=== PATIENT | female | born 1940 | race Caucasian/White ===

== ENCOUNTER 2021-12-04 16:21 | Inpatient (IN) | payer MEDICARE ==
[2021-12-04 17:13] LABS: #Eosinphils 0.1 thou/uL (0.0-0.7); #Lymphocytes 1.1 thou/uL (1.20-3.40); #Monocytes 0.7 thou/uL (0.11-0.59); %Basophils 0.7 % (0.0-1.0); %Eosinophils 1.7 % (0.0-10.0); %Lymphocytes 21.9 % (21.0-51.0); %Neutrophils 61.7 % (42.0-75.0); Hemoglobin 15.2 g/dL (12.0-16.0); Mean Corpuscular HGB CONC 32.2 g/dL (32.0-36.0); Mean Corpuscular Hemoglobin 32.8 pg (27.0-31.0); Mean Platelet Volume 8.1 fL (7.4-10.4); Platelet Count 159 thou/uL (130-400); RBC Distribution Width 12.5 % (11.5-14.5); Red Blood Cell (RBC) Count 4.64 mill/uL (4.20-5.40); White Blood Cell (WBC) Count 4.9 thou/uL (4.8-10.8)
[2021-12-04 17:40] LABS: ALT (SGPT) 23 U/L (8-55); AST (SGOT) 31 U/L (5-34); Albumin 3.5 g/dL (3.4-4.8); Alkaline Phosphatase 64 U/L (40-110); Anion Gap 12 mmol/L (10-20); BUN (Urea Nitrogen) 15 mg/dL (9.8-20.1); Bilirubin, Total 1.1 mg/dL (0.2-1.2); Calc. Creatinine Clearance 0 mL/min (70-130); Calcium 8.9 mg/dL (7.8-10.44); Carbon Dioxide 29 mmol/L (23-31); Chloride 99 mmol/L (98-107); Globulin 2.4 g/dL (2.4-3.5); Glucose 119 mg/dL (83-110); Potassium 3.8 mmol/L (3.5-5.1); Protein, Total 5.9 g/dL (5.8-8.1); Sodium 136 mmol/L (136-145)
[2021-12-04] MEDS ORDERED: Nitroglycerin 2% Ointment 1 INCH/1 GM Packet ONE (18:10)
[2021-12-04] MEDS ORDERED: Furosemide 40 MG/4 ML VIAL ONE (18:52)
[2021-12-04] MEDS ORDERED: Metoprolol Tartrate 5 MG/5 ML VIAL ONE (18:53)
[2021-12-04 19:07] LABS: SARS-CoV-2 NAA Rapid Test Not Detected (NotDetected)
[2021-12-04] MEDS ORDERED: Acetaminophen 325 MG TAB PO PRN (19:59)
[2021-12-04] MEDS ORDERED: Ondansetron PF 4 MG/2 ML Vial IVP PRN (19:59)
[2021-12-04] MEDS ORDERED: Potassium Chloride 20 MEQ TAB PO SCH (20:15)
[2021-12-04 20:36] LABS: Troponin I 0.013 ng/mL (< 0.028)
[2021-12-04 20:43] LABS: Magnesium 1.7 mg/dL (1.6-2.6)
[2021-12-04 21:00] VITALS: BMI 26.4
[2021-12-04] MEDS ORDERED: Apixaban 5 MG TAB PO SCH (21:00)
[2021-12-05 00:01] LABS: Troponin I 0.011 ng/mL (< 0.028)
[2021-12-05] MEDS ORDERED: Metoprolol Tartrate 5 MG/5 ML VIAL IVP SCH (04:29)
[2021-12-05 04:35] LABS: #Eosinphils 0.1 thou/uL (0.0-0.7); #Lymphocytes 1.1 thou/uL (1.20-3.40); #Monocytes 0.6 thou/uL (0.11-0.59); #Neutrophils 3.1 thou/uL (1.40-6.50); %Basophils 0.5 % (0.0-1.0); %Eosinophils 2.5 % (0.0-10.0); %Lymphocytes 21.8 % (21.0-51.0); %Monocytes 11.9 % (0.0-10.0); %Neutrophils 63.3 % (42.0-75.0); Mean Corpuscular HGB CONC 33.6 g/dL (32.0-36.0); Mean Corpuscular Hemoglobin 34.5 pg (27.0-31.0); Mean Platelet Volume 8.5 fL (7.4-10.4); Platelet Count 143 thou/uL (130-400); RBC Distribution Width 12.4 % (11.5-14.5); Red Blood Cell (RBC) Count 4.07 mill/uL (4.20-5.40); White Blood Cell (WBC) Count 4.9 thou/uL (4.8-10.8)
[2021-12-05 04:45] LABS: Anion Gap 12 mmol/L (10-20); BUN (Urea Nitrogen) 17 mg/dL (9.8-20.1); Calc. Creatinine Clearance 58 mL/min (70-130); Calcium 8.5 mg/dL (7.8-10.44); Carbon Dioxide 29 mmol/L (23-31); Chloride 101 mmol/L (98-107); Glucose 110 mg/dL (83-110); Magnesium 1.7 mg/dL (1.6-2.6); Potassium 3.9 mmol/L (3.5-5.1); Sodium 138 mmol/L (136-145)
[2021-12-05] MEDS: Furosemide 40 MG/4 ML VIAL SLOW IVP SCH ×2 (05:28→16:53)
[2021-12-05] MEDS ORDERED: Apixaban 5 MG TAB PO SCH (07:18)
[2021-12-05] MEDS ORDERED: Magnesium 2 GM/50 ML(in water) 2 GM in Premix Bag 1 BAG IVPB SCH (07:30)
[2021-12-05] MEDS ORDERED: Diltiazem 125 MG in Sodium Chloride 0.9% 100 ML IVPB SCH (07:45)
[2021-12-05] MEDS ORDERED: Metoprolol Tartrate 25 MG TAB PO SCH (09:00)
[2021-12-05] MEDS ORDERED: Metoprolol Tartrate 50 MG TAB PO SCH (09:00)
[2021-12-05] MEDS: Digoxin 0.5 MG/2 ML AMP SLOW IVP SCH ×3 (10:31→20:47)
[2021-12-05] MEDS: Potassium Chloride 20 MEQ TAB PO SCH (10:47)
[2021-12-05] MEDS: Apixaban 2.5 MG TAB PO SCH ×2 (10:48→20:47)
[2021-12-05] MEDS: Metoprolol Tartrate 25 MG TAB PO SCH (20:47)
[2021-12-06] MEDS: Digoxin 0.5 MG/2 ML AMP SLOW IVP SCH (03:20)
[2021-12-06 04:19] LABS: #Eosinphils 0.1 thou/uL (0.0-0.7); #Lymphocytes 1.2 thou/uL (1.20-3.40); #Monocytes 0.4 thou/uL (0.11-0.59); #Neutrophils 1.9 thou/uL (1.40-6.50); %Basophils 0.1 % (0.0-1.0); %Eosinophils 3.5 % (0.0-10.0); %Lymphocytes 33.5 % (21.0-51.0); %Monocytes 11.9 % (0.0-10.0); %Neutrophils 50.9 % (42.0-75.0); Mean Corpuscular HGB CONC 33.3 g/dL (32.0-36.0); Mean Platelet Volume 8.5 fL (7.4-10.4); Platelet Count 136 thou/uL (130-400); RBC Distribution Width 12.3 % (11.5-14.5); Red Blood Cell (RBC) Count 4.29 mill/uL (4.20-5.40); White Blood Cell (WBC) Count 3.7 thou/uL (4.8-10.8)
[2021-12-06 04:39] LABS: Anion Gap 13 mmol/L (10-20); BUN (Urea Nitrogen) 15 mg/dL (9.8-20.1); Calc. Creatinine Clearance 54 mL/min (70-130); Calcium 8.1 mg/dL (7.8-10.44); Carbon Dioxide 29 mmol/L (23-31); Chloride 100 mmol/L (98-107); Glucose 107 mg/dL (83-110); Potassium 3.7 mmol/L (3.5-5.1); Sodium 138 mmol/L (136-145)
[2021-12-06] MEDS ORDERED: Metolazone 2.5 MG TAB PO SCH ×2 (08:30)
[2021-12-06] MEDS: Potassium Chloride 20 MEQ TAB PO SCH (09:53)
[2021-12-06] MEDS: Metoprolol Tartrate 25 MG TAB PO SCH (09:59)
[2021-12-06] MEDS: Apixaban 2.5 MG TAB PO SCH (09:59)
[2021-12-06] MEDS: Furosemide 40 MG/4 ML VIAL SLOW IVP SCH ×2 (10:00→15:14)
[2021-12-06 16:07] VITALS: BP 108/76; TEMP 97.2
[2021-12-06] MEDS ORDERED: Apixaban 5 MG TAB PO SCH (21:00)
== END 2021-12-06 15:50 | disposition home or self-care (01) | DRG 291 ==
LOC: ERS 16:21 → 2NO 19:28
PROVIDERS: ADMIT Internal Medicine; ATTEND Internal Medicine
DX: I11.0 Hypertensive heart disease with heart failure (principal); I50.33 Acute on chronic diastolic (congestive) heart failure; Z20.822 Contact with and (suspected) exposure to COVID-19; E03.9 Hypothyroidism, unspecified; F41.9 Anxiety disorder, unspecified; I48.0 Paroxysmal atrial fibrillation; I87.2 Venous insufficiency (chronic) (peripheral); I08.3 Combined rheumatic disorders of mitral, aortic and tricuspid valves; Z91.09 Other allergy status, other than to drugs and biological substances; Z85.21 Personal history of malignant neoplasm of larynx; Z90.89 Acquired absence of other organs; Z90.49 Acquired absence of other specified parts of digestive tract; Z92.21 Personal history of antineoplastic chemotherapy; Z79.899 Other long term (current) drug therapy; Z79.01 Long term (current) use of anticoagulants; Z82.3 Family history of stroke; Z82.49 Family history of ischemic heart disease and other diseases of the circulatory system; Z87.891 Personal history of nicotine dependence
CPT/HCPCS: 36415; 71045; 80048; 80053; 83735; 83880; 84443; 84484; 85025; 93005; 93306; 96374; 96375; J1160; J1940; J3475; U0002

== ENCOUNTER 2022-02-03 08:55 | Inpatient (IN) | payer MEDICARE ==
[2022-02-03] MEDS ORDERED: Acetaminophen 325 MG TAB PO PRN (18:41)
[2022-02-03] MEDS ORDERED: Bisacodyl 5 MG TAB PO PRN (18:41)
[2022-02-03] MEDS ORDERED: Senokot S 8.6-50 MG TAB PO PRN (18:41)
[2022-02-03 18:57] LABS: Anion Gap 17 mmol/L (10-20); BUN (Urea Nitrogen) 19 mg/dL (9.8-20.1); Calc. Creatinine Clearance 0 mL/min (70-130); Calcium 9.1 mg/dL (7.8-10.44); Carbon Dioxide 32 mmol/L (23-31); Chloride 95 mmol/L (98-107); Glucose 100 mg/dL (83-110); Magnesium 2.5 mg/dL (1.6-2.6); Potassium 3.6 mmol/L (3.5-5.1); Sodium 140 mmol/L (136-145)
[2022-02-03] MEDS ORDERED: Potassium Chloride 20 MEQ TAB PO SCH (19:45)
[2022-02-03 19:50] VITALS: BMI 24.1
[2022-02-03] MEDS ORDERED: Dofetilide 0.125 MG CAP PO SCH (21:00)
[2022-02-03] MEDS: Metoprolol Tartrate 100 MG TAB PO SCH (21:07)
[2022-02-03] MEDS: Famotidine 20 MG TAB PO SCH (21:07)
[2022-02-03] MEDS: Apixaban 5 MG TAB PO SCH (21:07)
[2022-02-04 05:24] LABS: #Eosinphils 0.1 thou/uL (0.0-0.7); #Lymphocytes 1.4 thou/uL (1.20-3.40); #Monocytes 0.6 thou/uL (0.11-0.59); #Neutrophils 2.3 thou/uL (1.40-6.50); %Basophils 0.7 % (0.0-1.0); %Eosinophils 2.2 % (0.0-10.0); %Lymphocytes 31.2 % (21.0-51.0); %Monocytes 13.3 % (0.0-10.0); %Neutrophils 52.6 % (42.0-75.0); Hemoglobin 14.2 g/dL (12.0-16.0); Mean Corpuscular HGB CONC 33.5 g/dL (32.0-36.0); Mean Corpuscular Hemoglobin 35.1 pg (27.0-31.0); Platelet Count 122 thou/uL (130-400); RBC Distribution Width 13.2 % (11.5-14.5); Red Blood Cell (RBC) Count 4.04 mill/uL (4.20-5.40); White Blood Cell (WBC) Count 4.4 thou/uL (4.8-10.8)
[2022-02-04 05:35] LABS: Anion Gap 14 mmol/L (10-20); BUN (Urea Nitrogen) 19 mg/dL (9.8-20.1); Calc. Creatinine Clearance 49 mL/min (70-130); Calcium 8.5 mg/dL (7.8-10.44); Carbon Dioxide 33 mmol/L (23-31); Chloride 96 mmol/L (98-107); Glucose 103 mg/dL (83-110); Magnesium 2.4 mg/dL (1.6-2.6); Potassium 3.6 mmol/L (3.5-5.1); Sodium 139 mmol/L (136-145)
[2022-02-04] MEDS ORDERED: Enoxaparin Sodium 40 MG/0.4 ML SYRINGE SC SCH (09:00)
[2022-02-04] MEDS ORDERED: Dofetilide 0.25 MG CAP PO SCH (09:00)
[2022-02-04] MEDS ORDERED: Furosemide 20 MG TAB PO SCH ×2 (09:00)
[2022-02-04] MEDS ORDERED: Metolazone 2.5 MG TAB PO SCH ×2 (09:00)
[2022-02-04] MEDS: Apixaban 5 MG TAB PO SCH ×2 (09:25→21:17)
[2022-02-04] MEDS: Dofetilide 0.125 MG CAP PO SCH ×2 (09:26→21:17)
[2022-02-04] MEDS: Metoprolol Tartrate 100 MG TAB PO SCH ×2 (09:26→21:17)
[2022-02-04] MEDS: Potassium Chloride 20 MEQ TAB PO SCH (09:26)
[2022-02-04] MEDS: Famotidine 20 MG TAB PO SCH (09:26)
[2022-02-04 12:21] LABS: SARS-CoV-2 PCR by NAA Not Detected (NotDetected)
[2022-02-04] MEDS ORDERED: Potassium Chloride 20 MEQ TAB PO SCH (13:45)
[2022-02-05 05:02] LABS: #Eosinphils 0.1 thou/uL (0.0-0.7); #Lymphocytes 1.3 thou/uL (1.20-3.40); #Monocytes 0.5 thou/uL (0.11-0.59); #Neutrophils 2.1 thou/uL (1.40-6.50); %Basophils 0.8 % (0.0-1.0); %Eosinophils 2.7 % (0.0-10.0); %Lymphocytes 32.4 % (21.0-51.0); %Monocytes 12.3 % (0.0-10.0); %Neutrophils 51.7 % (42.0-75.0); Hemoglobin 15.3 g/dL (12.0-16.0); Mean Corpuscular HGB CONC 33.3 g/dL (32.0-36.0); Mean Corpuscular Hemoglobin 35.1 pg (27.0-31.0); Mean Platelet Volume 9.1 fL (7.4-10.4); Platelet Count 118 thou/uL (130-400); RBC Distribution Width 13.2 % (11.5-14.5); Red Blood Cell (RBC) Count 4.35 mill/uL (4.20-5.40)
[2022-02-05 05:20] LABS: Anion Gap 13 mmol/L (10-20); BUN (Urea Nitrogen) 21 mg/dL (9.8-20.1); Calc. Creatinine Clearance 41 mL/min (70-130); Calcium 8.6 mg/dL (7.8-10.44); Carbon Dioxide 31 mmol/L (23-31); Chloride 99 mmol/L (98-107); Glucose 112 mg/dL (83-110); Magnesium 2.1 mg/dL (1.6-2.6); Potassium 4.2 mmol/L (3.5-5.1); Sodium 139 mmol/L (136-145)
[2022-02-05] MEDS: Potassium Chloride 20 MEQ TAB PO SCH (08:56)
[2022-02-05] MEDS: Apixaban 5 MG TAB PO SCH (08:56)
[2022-02-05] MEDS: Metoprolol Tartrate 100 MG TAB PO SCH (08:56)
[2022-02-05] MEDS: Dofetilide 0.125 MG CAP PO SCH (08:57)
[2022-02-05] MEDS ORDERED: Potassium Chloride 20 MEQ TAB PO SCH (09:00)
[2022-02-05] MEDS ORDERED: Famotidine 20 MG TAB PO SCH (09:00)
[2022-02-05] MEDS ORDERED: Magnesium 2 GM/50 ML(in water) 2 GM in Premix Bag 1 BAG IVPB SCH (09:00)
[2022-02-05 15:48] VITALS: BP 142/67; TEMP 98.4
== END 2022-02-05 17:45 | disposition home or self-care (01) | DRG 309 ==
LOC: 2NO 17:13
PROVIDERS: ADMIT Hospitalist; ATTEND Internal Medicine Cardiovascular Disease
DX: I48.91 Unspecified atrial fibrillation (principal); I50.32 Chronic diastolic (congestive) heart failure; Z20.822 Contact with and (suspected) exposure to COVID-19; E03.9 Hypothyroidism, unspecified; Z79.01 Long term (current) use of anticoagulants; Z79.899 Other long term (current) drug therapy; Z91.048 Other nonmedicinal substance allergy status; Z87.891 Personal history of nicotine dependence
CPT/HCPCS: 36415; 80048; 83735; 85025; 93005; 93010; J3475; J8499; U0003; U0005

== ENCOUNTER 2024-09-16 14:41 | Emergency (ER) | payer MEDICARE ==
[2024-09-16 15:33] LABS: #Basophils 0.03 10x3/uL (0.0-0.2); %Basophils 0.4 % (0.0-1.0); %Eosinophils 0.8 % (0.0-10.0); %Lymphocytes 13.6 % (21.0-51.0); %Monocytes 10.8 % (0.0-10.0); %Neutrophils 73.9 % (42.0-75.0); Hematocrit 46.1 % (36.0-47.0); Mean Corpuscular HGB CONC 32.5 g/dL (32.0-36.0); Mean Corpuscular Hemoglobin 32.5 pg (27.0-31.0); Mean Corpuscular Volume 99.8 fL (78.0-98.0); Mean Platelet Volume 11.9 fL (7.4-10.4); Platelet Count 165 10x3/uL (130-400); RBC Distribution Width 14.7 % (11.5-14.5); Red Blood Cell (RBC) Count 4.62 mill/uL (4.20-5.40)
[2024-09-16 15:56] LABS: INR-International Normal Ratio 1.5; PTT 38.6 sec (22.9-36.1); Prothrombin Time 17.8 sec (12.0-14.7)
[2024-09-16 16:01] LABS: Troponin I Less than 0.010 ng/mL (< 0.028)
[2024-09-16] MEDS ORDERED: Furosemide 40 MG (4 mL) VIAL ONE (16:43)
[2024-09-16] MEDS ORDERED: Metoprolol Tartrate 5 MG (5 mL) VIAL ONE (16:43)
[2024-09-16 17:40] LABS: ALT (SGPT) 19 U/L (8-55); AST (SGOT) 26 U/L (5-34); Albumin 3.1 g/dL (3.4-4.8); Alkaline Phosphatase 131 U/L (40-110); Anion Gap 15 mmol/L (10-20); BUN (Urea Nitrogen) 15 mg/dL (9.8-20.1); Calc. Creatinine Clearance 0 mL/min (70-130); Calcium 8.8 mg/dL (7.8-10.44); Carbon Dioxide 25 mmol/L (23-31); Chloride 101 mmol/L (98-107); Estimated GFR 77; Globulin 3.8 g/dL (2.4-3.5); Glucose 162 mg/dL (83-110); Potassium 3.5 mmol/L (3.5-5.1); Protein, Total 6.9 g/dL (5.8-8.1); Sodium 137 mmol/L (136-145)
== END 2024-09-16 19:02 | disposition home or self-care (01) ==
LOC: ERS 14:41
DX: S80.11XA Contusion of right lower leg, initial encounter (principal); X58.XXXA Exposure to other specified factors, initial encounter
CPT/HCPCS: 71045; 80053; 83605; 83880; 84484; 85025; 85610; 85730; 93005; 93971; 96374; 96375; 99284; J1940

== ENCOUNTER 2024-11-02 22:04 | Inpatient (IN) | payer MEDICARE ==
[2024-11-03 02:32] VITALS: BMI 21.2
[2024-11-03] MEDS ORDERED: Ondansetron ODT 4 MG TAB PO PRN (02:37)
[2024-11-03] MEDS ORDERED: Acetaminophen 650 MG Suppository PR PRN (02:37)
[2024-11-03] MEDS ORDERED: Calcium Carbonate 500 MG ChewTAB PO PRN (02:37)
[2024-11-03] MEDS ORDERED: Acetaminophen 325 MG TAB PO PRN (02:37)
[2024-11-03] MEDS ORDERED: Ondansetron PF 4 MG/2 ML Vial IVP PRN (02:37)
[2024-11-03 05:00] LABS: #Basophils Less than 0.03 10x3/uL (0.0-0.2); %Basophils 0.4 % (0.0-1.0); %Eosinophils 2.1 % (0.0-10.0); %Lymphocytes 19.3 % (21.0-51.0); %Monocytes 15.4 % (0.0-10.0); %Neutrophils 62.6 % (42.0-75.0); Hematocrit 41.2 % (36.0-47.0); Hemoglobin 13.7 g/dL (12.0-16.0); Mean Corpuscular HGB CONC 33.3 g/dL (32.0-36.0); Mean Corpuscular Hemoglobin 33.4 pg (27.0-31.0); Mean Corpuscular Volume 100.5 fL (78.0-98.0); Mean Platelet Volume 11.4 fL (7.4-10.4); Platelet Count 148 10x3/uL (130-400); RBC Distribution Width 14.4 % (11.5-14.5)
[2024-11-03 05:40] LABS: ALT (SGPT) 13 U/L (Less than 34); AST (SGOT) 22 U/L (11-34); Albumin 2.7 g/dL (3.1-4.5); Alkaline Phosphatase 99 U/L (40-110); Anion Gap 14 mmol/L (10-20); BUN (Urea Nitrogen) 19 mg/dL (9.8-20.1); Bilirubin, Total 1.2 mg/dL (0.3-1.2); Calc. Creatinine Clearance 49 mL/min (70-130); Calcium 8.5 mg/dL (7.8-10.44); Carbon Dioxide 27 mmol/L (23-31); Chloride 104 mmol/L (98-107); Estimated GFR 77; Globulin 3.3 g/dL (2.4-3.5); Glucose 125 mg/dL (83-110); Potassium 3.7 mmol/L (3.5-5.1); Sodium 141 mmol/L (136-145)
[2024-11-03] MEDS: Albuterol 2.5 MG (3 mL) NEB NEB PRN (07:49)
[2024-11-03] MEDS: Magnesium Oxide 400 MG TAB PO SCH (08:32)
[2024-11-03] MEDS: Metoprolol Tartrate 100 MG TAB PO SCH (08:32)
[2024-11-03] MEDS: Apixaban 2.5 MG TAB PO SCH (08:32)
[2024-11-03] MEDS: Famotidine 20 MG TAB PO SCH (08:32)
[2024-11-03] MEDS: Dofetilide 0.125 MG CAP PO SCH (08:32)
[2024-11-03] MEDS: Potassium Chloride 20 MEQ TAB PO SCH (08:32)
[2024-11-03] MEDS: ALPRAZolam 0.5 MG TAB PO PRN (08:33)
[2024-11-03] MEDS: Famotidine/PF 20 mg/2ml Vial SLOW IVP SCH (08:33)
[2024-11-03] MEDS: Furosemide 40 MG (4 mL) VIAL SLOW IVP SCH ×2 (08:54→14:36)
[2024-11-03] MEDS ORDERED: MAGNESIUM GLYCINATE 100 MG PO SCH (09:00)
[2024-11-03] MEDS ORDERED: Famotidine 20 MG TAB PO SCH (09:00)
[2024-11-03] MEDS ORDERED: Famotidine/PF 20 mg/2ml Vial SLOW IVP SCH (09:00)
[2024-11-03] MEDS ORDERED: Non-Formulary Item 1 EACH (Levothyroxine Sodium [Levothyroxine Sodium] 100 MCG Capsule) PO SCH (09:00)
[2024-11-03] MEDS ORDERED: Apixaban 5 MG TAB PO SCH (09:00)
[2024-11-03] MEDS: Guaifenesin DM 100-10/5 ML UDCUP PO PRN (11:25)
[2024-11-03] MEDS: ALPRAZolam 0.5 MG TAB PO SCH (20:06)
[2024-11-03 22:45] LABS: Actual Bicarbonate (HCO3a) 24.1 mEq/L (22-28); Base Excess (BEa) -4.1 mEq/L (-2.0 to +3.0); CO2 Tension 56.2 mmHg (35.0-45.0); Calcium, Ionized (arterial) 1.13 mmol/L (1.12-1.30); Hematocrit-ABG 47 % (36.0-47.0); Hemoglobin (Hb) 16.1 g/dL (12.0-16.0); O2 Tension (PaO2), arterial 249.5 mmHg (> 60.0); Potassium - ABG Lab 4.51 mmol/L (3.70-5.30)
[2024-11-03 23:31] LABS: Anion Gap 16 mmol/L (10-20); BUN (Urea Nitrogen) 23 mg/dL (9.8-20.1); Calc. Creatinine Clearance 38 mL/min (70-130); Calcium 8.9 mg/dL (7.8-10.44); Carbon Dioxide 25 mmol/L (23-31); Chloride 103 mmol/L (98-107); Estimated GFR 57; Glucose 145 mg/dL (83-110); Potassium 4.4 mmol/L (3.5-5.1); Sodium 140 mmol/L (136-145)
[2024-11-03 23:32] LABS: Lactic Acid 3.08 mmol/L (0.50-2.20)
[2024-11-04] MEDS: Acetylcysteine (MUCOMYST) 200 MG/ML (10 ML VIAL) NEB SCH (00:40)
[2024-11-04] MEDS: Levothyroxine Sodium 100 MCG TAB PO SCH (05:27)
[2024-11-04 06:25] LABS: #Basophils Less than 0.03 10x3/uL (0.0-0.2); #Eosinophils Less than 0.03 10x3/uL (0.0-0.7); %Basophils 0.3 % (0.0-1.0); %Eosinophils 0.1 % (0.0-10.0); %Lymphocytes 14.8 % (21.0-51.0); %Monocytes 13.1 % (0.0-10.0); %Neutrophils 71.3 % (42.0-75.0); Hematocrit 44.4 % (36.0-47.0); Hemoglobin 14.4 g/dL (12.0-16.0); Mean Corpuscular HGB CONC 32.4 g/dL (32.0-36.0); Mean Corpuscular Hemoglobin 33.3 pg (27.0-31.0); Mean Corpuscular Volume 102.8 fL (78.0-98.0); Mean Platelet Volume 11.7 fL (7.4-10.4); Platelet Count 137 10x3/uL (130-400); RBC Distribution Width 14.3 % (11.5-14.5); Red Blood Cell (RBC) Count 4.32 mill/uL (4.20-5.40)
[2024-11-04 06:46] LABS: Anion Gap 16 mmol/L (10-20); BUN (Urea Nitrogen) 22 mg/dL (9.8-20.1); Calc. Creatinine Clearance 43 mL/min (70-130); Calcium 8.4 mg/dL (7.8-10.44); Carbon Dioxide 27 mmol/L (23-31); Chloride 103 mmol/L (98-107); Estimated GFR 66; Glucose 132 mg/dL (83-110); Potassium 4.2 mmol/L (3.5-5.1); Sodium 142 mmol/L (136-145)
[2024-11-04] MEDS: Metolazone 2.5 MG TAB PO SCH (08:10)
[2024-11-05] MEDS: Furosemide 20 MG (2 mL) VIAL SLOW IVP SCH (14:35)
[2024-11-06 05:17] LABS: #Basophils 0.04 10x3/uL (0.0-0.2); %Basophils 0.8 % (0.0-1.0); %Eosinophils 4.7 % (0.0-10.0); %Lymphocytes 30.7 % (21.0-51.0); %Monocytes 13.7 % (0.0-10.0); %Neutrophils 49.7 % (42.0-75.0); Hematocrit 41.7 % (36.0-47.0); Hemoglobin 13.7 g/dL (12.0-16.0); Mean Corpuscular HGB CONC 32.9 g/dL (32.0-36.0); Mean Corpuscular Hemoglobin 33.1 pg (27.0-31.0); Mean Corpuscular Volume 100.7 fL (78.0-98.0); Mean Platelet Volume 11.1 fL (7.4-10.4); Platelet Count 147 10x3/uL (130-400); RBC Distribution Width 14.2 % (11.5-14.5); Red Blood Cell (RBC) Count 4.14 mill/uL (4.20-5.40)
[2024-11-06 07:18] LABS: Anion Gap 10 mmol/L (10-20); BUN (Urea Nitrogen) 22 mg/dL (9.8-20.1); Calc. Creatinine Clearance 48 mL/min (70-130); Calcium 8.2 mg/dL (7.8-10.44); Carbon Dioxide 33 mmol/L (23-31); Chloride 97 mmol/L (98-107); Estimated GFR 78; Glucose 95 mg/dL (83-110); Potassium 3.5 mmol/L (3.5-5.1); Sodium 136 mmol/L (136-145)
[2024-11-07] MEDS ORDERED: Lidocaine 1% PF 5 ML VIAL ONE (10:06)
[2024-11-07] MEDS ORDERED: PROPOFOL 200 MG/20 ML VIAL ONE (10:06)
[2024-11-07 11:51] VITALS: BP 131/60; TEMP 98.1
== END 2024-11-07 17:11 | disposition home or self-care (01) | DRG 291 ==
LOC: INTOOBSV 22:04 → 2NO 22:04 → OBSVTOIN 11-03 08:34 → IMCU/EMU 11-03 23:15 → 2NO 11-04 16:06
PROVIDERS: ADMIT Student in an Organized Health Care Education/Training Program; ATTEND Hospitalist
PROC: 5A2204Z Restoration of Cardiac Rhythm, Single (ICD-10-PCS; principal; 2024-11-07)
DX: I11.0 Hypertensive heart disease with heart failure (principal); I50.33 Acute on chronic diastolic (congestive) heart failure; J96.02 Acute respiratory failure with hypercapnia; J96.01 Acute respiratory failure with hypoxia; I48.19 Other persistent atrial fibrillation; G93.40 Encephalopathy, unspecified; E87.29 Other acidosis; J95.03 Malfunction of tracheostomy stoma; I48.0 Paroxysmal atrial fibrillation; I07.1 Rheumatic tricuspid insufficiency; Z79.01 Long term (current) use of anticoagulants; Z90.49 Acquired absence of other specified parts of digestive tract; Z98.51 Tubal ligation status; Z87.891 Personal history of nicotine dependence
CPT/HCPCS: 36415; 36416; 71045; 80048; 80053; 82805; 83605; 83880; 85025; 92960; 93005; 93010; 93306; 94640; G0378; J1940; J2704; J7608; J7611; J8499

== ENCOUNTER 2024-11-09 19:43 | Inpatient (IN) | payer MEDICARE ==
[2024-11-09 20:37] LABS: #Basophils Less than 0.03 10x3/uL (0.0-0.2); %Basophils 0.3 % (0.0-1.0); %Eosinophils 1.1 % (0.0-10.0); %Lymphocytes 10.2 % (21.0-51.0); %Neutrophils 76.6 % (42.0-75.0); Hemoglobin 16.2 g/dL (12.0-16.0); Mean Corpuscular HGB CONC 33.1 g/dL (32.0-36.0); Mean Corpuscular Hemoglobin 33.1 pg (27.0-31.0); Mean Platelet Volume 11.4 fL (7.4-10.4); Platelet Count 143 10x3/uL (130-400); RBC Distribution Width 13.8 % (11.5-14.5)
[2024-11-09 20:40] LABS: Actual Bicarbonate (HCO3v) 28.5 mEq/L (22-28); Base Excess 3.2 mEq/L (-2.0 to +3.0); Calcium, Ionized (venous) 1.09 mmol/L (1.16-1.32); Chloride (VBG) 97 mmol/L (98-106); Hematocrit-VBG 51 % (36.0-47.0); Hemoglobin (Hb) 17.2 g/dL (11.7-16.1); Potassium (VBG) 3.71 mmol/L (3.70-5.30); Sodium 138 mmol/L (133-146); pH (venous) 7.414 (7.32-7.43)
[2024-11-09 20:53] LABS: ALT (SGPT) 25 U/L (Less than 34); AST (SGOT) 44 U/L (11-34); Alkaline Phosphatase 116 U/L (40-110); Anion Gap 17 mmol/L (10-20); BUN (Urea Nitrogen) 22 mg/dL (9.8-20.1); Calc. Creatinine Clearance 0 mL/min (70-130); Carbon Dioxide 27 mmol/L (23-31); Chloride 98 mmol/L (98-107); Estimated GFR 61; Glucose 160 mg/dL (83-110); Potassium 3.7 mmol/L (3.5-5.1); Sodium 138 mmol/L (136-145)
[2024-11-09 20:57] LABS: Troponin I 0.078 ng/mL (< 0.028)
[2024-11-09] MEDS ORDERED: Aspirin Chewable 81 MG TAB ONE (22:10)
[2024-11-09] MEDS ORDERED: Furosemide 40 MG (4 mL) VIAL ONE (22:10)
[2024-11-09] MEDS ORDERED: Ondansetron PF 4 MG/2 ML Vial IVP PRN (23:08)
[2024-11-09] MEDS ORDERED: Acetaminophen 325 MG TAB PO PRN (23:08)
[2024-11-09] MEDS ORDERED: Ipratropium/Albuterol 3 ML NEB EZPAP PRN (23:37)
[2024-11-10] MEDS: guaiFENesin/DM ER PO SCH ×2 (00:21→10:42)
[2024-11-10 01:52] LABS: Troponin I 0.146 ng/mL (< 0.028)
[2024-11-10 04:40] LABS: #Basophils Less than 0.03 10x3/uL (0.0-0.2); %Basophils 0.3 % (0.0-1.0); %Lymphocytes 22.4 % (21.0-51.0); %Monocytes 13.5 % (0.0-10.0); Hematocrit 44.1 % (36.0-47.0); Hemoglobin 14.7 g/dL (12.0-16.0); Mean Corpuscular HGB CONC 33.3 g/dL (32.0-36.0); Mean Corpuscular Hemoglobin 33.2 pg (27.0-31.0); Mean Corpuscular Volume 99.5 fL (78.0-98.0); Mean Platelet Volume 11.6 fL (7.4-10.4); Platelet Count 141 10x3/uL (130-400); RBC Distribution Width 13.6 % (11.5-14.5); Red Blood Cell (RBC) Count 4.43 mill/uL (4.20-5.40)
[2024-11-10 05:32] LABS: Anion Gap 17 mmol/L (10-20); BUN (Urea Nitrogen) 20 mg/dL (9.8-20.1); Calc. Creatinine Clearance 46 mL/min (70-130); Calcium 8.5 mg/dL (7.8-10.44); Carbon Dioxide 27 mmol/L (23-31); Chloride 99 mmol/L (98-107); Estimated GFR 75; Glucose 114 mg/dL (83-110); Magnesium 1.6 mg/dL (1.6-2.6); Potassium 3.3 mmol/L (3.5-5.1); Sodium 140 mmol/L (136-145)
[2024-11-10 06:17] LABS: Troponin I 0.104 ng/mL (< 0.028)
[2024-11-10] MEDS ORDERED: Magnesium 2 GM/50 ML BAG (IN WATER) ONE ×2 (06:26→09:41)
[2024-11-10] MEDS ORDERED: Potassium Chloride 20 MEQ TAB ONE ×2 (06:26→09:43)
[2024-11-10] MEDS ORDERED: Levothyroxine Sodium 100 MCG TAB ONE (06:26)
[2024-11-10] MEDS: Potassium Chloride 20 MEQ TAB PO SCH (06:37)
[2024-11-10] MEDS: Magnesium 2 GM/50 ML(in water) 2 GM in Premix 1 BAG IVPB SCH ×2 (06:37→10:42)
[2024-11-10] MEDS: Levothyroxine Sodium 100 MCG TAB PO SCH (06:37)
[2024-11-10] MEDS ORDERED: Electrolyte Replacement Protocol 1 EACH FS PRN (07:55)
[2024-11-10] MEDS ORDERED: MAGNESIUM GLYCINATE 100 MG PO SCH (09:00)
[2024-11-10] MEDS ORDERED: guaiFENesin ER 600 MG TAB ONE (09:43)
[2024-11-10] MEDS ORDERED: Metoprolol Tartrate 50 MG TAB ONE (09:43)
[2024-11-10] MEDS ORDERED: Furosemide 20 MG (2 mL) VIAL ONE (09:43)
[2024-11-10] MEDS ORDERED: Apixaban 5 MG TAB ONE (09:43)
[2024-11-10] MEDS ORDERED: Amiodarone 450 MG, Admixture Fee 1 EACH in Dextrose 5% in Water 250 ML IVPB SCH (09:45)
[2024-11-10] MEDS: Apixaban 2.5 MG TAB PO SCH (10:42)
[2024-11-10] MEDS: Furosemide 20 MG (2 mL) VIAL SLOW IVP SCH (10:42)
[2024-11-10] MEDS: Metoprolol Tartrate 100 MG TAB PO SCH (10:43)
[2024-11-10] MEDS: Potassium Chloride 10 MEQ TAB PO SCH (10:43)
[2024-11-10] MEDS: Dofetilide 0.125 MG CAP PO SCH (10:43)
[2024-11-10] MEDS: Amiodarone 150 MG, Admixture Fee 1 EACH in Dextrose 5% in Water 100 ML IVPB SCH (11:32)
[2024-11-10 18:03] LABS: Potassium 4.1 mmol/L (3.5-5.1)
[2024-11-10] MEDS: Cyanocobalamin (Vitamin B-12) 1,000 MCG TAB PO SCH (21:04)
[2024-11-10] MEDS: Folic Acid 1 MG TAB PO SCH (21:04)
[2024-11-10] MEDS: Cholecalciferol 1,000 UNITS (25 MCG) TAB PO SCH (21:04)
[2024-11-11 05:03] LABS: #Basophils Less than 0.03 10x3/uL (0.0-0.2); %Basophils 0.4 % (0.0-1.0); %Eosinophils 2.8 % (0.0-10.0); %Monocytes 13.2 % (0.0-10.0); %Neutrophils 61.1 % (42.0-75.0); Hematocrit 42.2 % (36.0-47.0); Mean Corpuscular HGB CONC 33.2 g/dL (32.0-36.0); Mean Corpuscular Volume 99.5 fL (78.0-98.0); Mean Platelet Volume 11.3 fL (7.4-10.4); Platelet Count 135 10x3/uL (130-400); RBC Distribution Width 13.5 % (11.5-14.5); Red Blood Cell (RBC) Count 4.24 mill/uL (4.20-5.40)
[2024-11-11 05:30] LABS: ALT (SGPT) 18 U/L (Less than 34); AST (SGOT) 25 U/L (11-34); Albumin 2.5 g/dL (3.1-4.5); Alkaline Phosphatase 89 U/L (40-110); Anion Gap 10 mmol/L (10-20); BUN (Urea Nitrogen) 20 mg/dL (9.8-20.1); Bilirubin, Total 1.4 mg/dL (0.3-1.2); Calc. Creatinine Clearance 47 mL/min (70-130); Calcium 8.1 mg/dL (7.8-10.44); Carbon Dioxide 30 mmol/L (23-31); Chloride 99 mmol/L (98-107); Estimated GFR 76; Globulin 3.3 g/dL (2.4-3.5); Glucose 114 mg/dL (83-110); Magnesium 2.1 mg/dL (1.6-2.6); Potassium 3.4 mmol/L (3.5-5.1); Protein, Total 5.8 g/dL (5.8-8.1); Sodium 136 mmol/L (136-145)
[2024-11-11] MEDS ORDERED: dilTIAZem 30 MG TAB PO SCH (06:00)
[2024-11-11] MEDS ORDERED: Electrolyte Replacement Protocol 1 EACH FS PRN (08:12)
[2024-11-11] MEDS ORDERED: Electrolyte Replacement Protocol FS PRN (08:30)
[2024-11-11] MEDS ORDERED: Metolazone 2.5 MG TAB PO SCH (09:00)
[2024-11-11] MEDS: Potassium Chloride 20 MEQ TAB PO SCH (09:28)
[2024-11-11] MEDS ORDERED: Polyethylene Glycol 3350 17 GM Packet PO PRN (11:12)
[2024-11-11] MEDS: Potassium Chloride 10 MEQ TAB PO SCH (17:06)
[2024-11-11] MEDS: Ipratropium/Albuterol 3 ML NEB IPPB SCH (19:32)
[2024-11-11] MEDS: Docusate 100 MG CAP PO SCH (20:44)
[2024-11-11] MEDS: ALPRAZolam 0.5 MG TAB PO PRN (22:32)
[2024-11-12 05:57] LABS: #Basophils 0.03 10x3/uL (0.0-0.2); %Basophils 0.5 % (0.0-1.0); %Eosinophils 2.5 % (0.0-10.0); %Lymphocytes 27.4 % (21.0-51.0); %Monocytes 13.1 % (0.0-10.0); %Neutrophils 55.8 % (42.0-75.0); Hematocrit 43.2 % (36.0-47.0); Hemoglobin 14.2 g/dL (12.0-16.0); Mean Corpuscular HGB CONC 32.9 g/dL (32.0-36.0); Mean Corpuscular Hemoglobin 33.1 pg (27.0-31.0); Mean Corpuscular Volume 100.7 fL (78.0-98.0); Platelet Count 143 10x3/uL (130-400); RBC Distribution Width 13.5 % (11.5-14.5); Red Blood Cell (RBC) Count 4.29 mill/uL (4.20-5.40)
[2024-11-12 06:21] LABS: ALT (SGPT) 16 U/L (Less than 34); AST (SGOT) 24 U/L (11-34); Albumin 2.6 g/dL (3.1-4.5); Alkaline Phosphatase 85 U/L (40-110); Anion Gap 12 mmol/L (10-20); BUN (Urea Nitrogen) 16 mg/dL (9.8-20.1); Bilirubin, Total 1.3 mg/dL (0.3-1.2); Calc. Creatinine Clearance 51 mL/min (70-130); Calcium 8.3 mg/dL (7.8-10.44); Carbon Dioxide 27 mmol/L (23-31); Chloride 99 mmol/L (98-107); Estimated GFR 86; Globulin 3.2 g/dL (2.4-3.5); Glucose 110 mg/dL (83-110); Potassium 3.7 mmol/L (3.5-5.1); Protein, Total 5.8 g/dL (5.8-8.1); Sodium 134 mmol/L (136-145)
[2024-11-12] MEDS: Furosemide 20 MG TAB PO SCH (10:29)
[2024-11-12] MEDS: Magnesium 2 GM/50 ML(in water) 2 GM in Premix 1 BAG IVPB SCH (10:30)
[2024-11-12] MEDS ORDERED: FLU (Fluad Triv) TS24-25 (65UP)/MF59C/PF 45 MCG/0.5 ML Syringe IM ONE (14:45)
[2024-11-13 11:33] LABS: Anion Gap 13 mmol/L (10-20); BUN (Urea Nitrogen) 15 mg/dL (9.8-20.1); Calc. Creatinine Clearance 47 mL/min (70-130); Calcium 8.5 mg/dL (7.8-10.44); Carbon Dioxide 26 mmol/L (23-31); Chloride 98 mmol/L (98-107); Estimated GFR 76; Glucose 148 mg/dL (83-110); Potassium 4.6 mmol/L (3.5-5.1); Sodium 132 mmol/L (136-145)
[2024-11-13 17:05] VITALS: BP 124/60; TEMP 98.5
== END 2024-11-13 16:45 | disposition home or self-care (01) | DRG 291 ==
LOC: ERS 19:43 → ERHOLD 23:11 → 2NO 23:19 → OBSVTOIN 23:26 → 2NO 11-10 13:57
PROVIDERS: ADMIT Internal Medicine; ATTEND Student in an Organized Health Care Education/Training Program
DX: I11.0 Hypertensive heart disease with heart failure (principal); I50.33 Acute on chronic diastolic (congestive) heart failure; J96.01 Acute respiratory failure with hypoxia; I48.19 Other persistent atrial fibrillation; J98.11 Atelectasis; I5A Non-ischemic myocardial injury (non-traumatic); C32.9 Malignant neoplasm of larynx, unspecified; I48.91 Unspecified atrial fibrillation; I45.10 Unspecified right bundle-branch block; E87.6 Hypokalemia; E03.9 Hypothyroidism, unspecified; R53.81 Other malaise; E83.42 Hypomagnesemia; Z90.49 Acquired absence of other specified parts of digestive tract; Z87.81 Personal history of (healed) traumatic fracture; Z88.8 Allergy status to other drugs, medicaments and biological substances; Z91.040 Latex allergy status; Z93.0 Tracheostomy status
CPT/HCPCS: 36415; 71045; 80048; 80053; 82805; 83735; 83880; 84484; 85025; 93005; 94640; 96374; 97139; J1940; J3475; J7620